=== PATIENT | female | born 1985 | race Caucasian/White ===

== ENCOUNTER 2016-09-04 05:35 | Inpatient (IN) | payer OTHER ==
[2016-09-04] MEDS ORDERED: Scopolamine 1.5 MG Transdermal Patch TRDERM PRN (06:00)
[2016-09-04] MEDS ORDERED: Acetaminophen 500 MG Tab PO ONE (06:00)
[2016-09-04] MEDS ORDERED: Dextrose 5%-Lactated Ringers 1,000 ML IV SCH (06:00)
[2016-09-04] MEDS ORDERED: Gabapentin 300 MG Cap PO ONE (06:00)
[2016-09-04] MEDS ORDERED: Celecoxib 200 MG Cap PO ONE (06:00)
[2016-09-04] MEDS ORDERED: Pantoprazole 40 MG Vial IVPUSH ONE (06:30)
[2016-09-04] MEDS ORDERED: fentaNYL 250 MCG/5 ML SDV ONE (07:07)
[2016-09-04] MEDS ORDERED: Midazolam 1 MG/ML 2 ML SDV ONE (07:07)
[2016-09-04] MEDS ORDERED: Dexamethasone 4 MG/ML SDV ONE (07:08)
[2016-09-04] MEDS ORDERED: Propofol 200 MG/20 ML SDV ONE (07:08)
[2016-09-04] MEDS ORDERED: Rocuronium 50 MG/5 ML Vial ONE (07:08)
[2016-09-04] MEDS ORDERED: Ondansetron 4 MG/2 ML SDV ONE (07:08)
[2016-09-04] MEDS ORDERED: Succinylcholine/Normal Saline 200 MG/10 ML Syringe ONE (07:08)
[2016-09-04] MEDS ORDERED: Neostigmine Methylsulfate 1 MG/ML 5 ML Syringe ONE (07:08)
[2016-09-04] MEDS ORDERED: cefOXitin 2 GM in Sodium Chloride 0.9% 100 ML IV ONE (07:45)
[2016-09-04] MEDS ORDERED: cefOXitin 2 GM in Sodium Chloride 0.9% 50 ML IV ONE (07:45)
[2016-09-04] MEDS ORDERED: Lactated Ringers 1,000 ML ONE (07:52)
[2016-09-04] MEDS ORDERED: Ropivacaine 60 ML, Dexamethasone 8 MG, EPINEPHrine 0.4 MG, Sodium Chloride 0.9% 17.6 ML NERVRT SCH ×4 (08:00)
[2016-09-04] MEDS ORDERED: Ketamine 500 MG/5 ML MDV IV SCH (08:00)
[2016-09-04] MEDS ORDERED: Lidocaine 2% 100 MG/5 ML Syringe IVPUSH SCH (08:00)
[2016-09-04] MEDS: cefOXitin 2 GM Vial ONE ×2 (08:26→09:10)
[2016-09-04] MEDS ORDERED: fentaNYL 100 MCG/2 ML SDV IVPUSH ONE (10:00)
[2016-09-04] MEDS: Lidocaine 0.4%/D5W 2 GM/500 ML BAG IV SCH (11:38)
[2016-09-04] MEDS ORDERED: Ondansetron 4 MG/2 ML SDV IVPUSH PRN (11:39)
[2016-09-04] MEDS ORDERED: SCOPOLAMINE PATCH CHECK TOP SCH (11:39)
[2016-09-04] MEDS ORDERED: Pantoprazole 40 MG Vial IVPUSH SCH ×2 (11:39→13:00)
[2016-09-04] MEDS ORDERED: hydrOXYzine HCl 50 MG/ML SDV IM PRN (11:39)
[2016-09-04] MEDS ORDERED: Labetalol 20 MG/4 ML Syringe IVPUSH PRN (11:39)
[2016-09-04] MEDS ORDERED: SCOPOLAMINE PATCH ASK TOP SCH (11:39)
[2016-09-04] MEDS ORDERED: diphenhydrAMINE 50 MG/ML SDV IV PRN (11:46)
[2016-09-04] MEDS: Dextrose 5%-Lactated Ringers 1,000 ML IV SCH (13:44)
[2016-09-04] MEDS: cefOXitin 2 GM in Sodium Chloride 0.9% 50 ML IV SCH ×2 (13:48→20:45)
[2016-09-04] MEDS: Acetaminophen 500 MG Tab PO SCH ×2 (14:43→20:45)
[2016-09-04] MEDS: Gabapentin 250 MG/5 ML Solution ML 470 ML Bottle PO SCH ×2 (14:44→20:45)
[2016-09-04] MEDS: MVI, Adult with Vitamin K 10 ML, Thiamine 200 MG, Chromium/Copper/Mang/Selen/Zn 1 ML in... IV SCH ×4 (16:59)
[2016-09-04] MEDS: Heparin Sodium 5,000 Units/ML Vial SUBCUT SCH (17:00)
[2016-09-04] MEDS ORDERED: Metoclopramide 10 MG/2 ML SDV IV PRN (17:00)
[2016-09-05] MEDS: Lidocaine 0.4%/D5W 2 GM/500 ML BAG IV SCH ×2 (00:37→10:15)
[2016-09-05] MEDS ORDERED: Iohexol 647 MG/ML 50 ML SDV PO SCH (00:45)
[2016-09-05] MEDS: cefOXitin 2 GM in Sodium Chloride 0.9% 50 ML IV SCH ×2 (02:42→07:52)
[2016-09-05] MEDS: Dextrose 5%-Lactated Ringers 1,000 ML IV SCH ×2 (02:44→05:30)
[2016-09-05] MEDS: Heparin Sodium 5,000 Units/ML Vial SUBCUT SCH ×2 (05:30→17:52)
[2016-09-05] MEDS ORDERED: Pantoprazole 40 MG Vial IVPUSH SCH (06:00)
--- NOTE | 2016-09-05 09:15 | PN ---
DATE OF SERVICE: 09/05/2016 The patient has been afebrile with stable vital signs. Pain control seems to be reasonable. She started to have some gas type discomfort. Oral intake was fairly good as well and x-ray looked good this morning. We will begin a step-2 diet without solids today. Lidocaine infusion will be ending late morning and we will see if she needs any additional pain control at that time. Otherwise, maximize activity and work with pulmonary toilet. Marie catheter will be coming out. Johnny Voss MD /[id number]
[2016-09-05] MEDS: Gabapentin 250 MG/5 ML Solution ML 470 ML Bottle PO SCH ×3 (09:37→19:59)
[2016-09-05] MEDS: Acetaminophen 500 MG Tab PO SCH (09:39)
[2016-09-05] MEDS: Celecoxib 200 MG Cap PO SCH (09:41)
--- NOTE | 2016-09-05 09:56 | CR ---
UGI wo KUB HISTORY: eval rny gbp FINDINGS: After administration of oral contrast, upright views were obtained. Post operative changes gastric bypass. Surgical drains in place. No evidence for leak. Contrast passes freely into proxima l small bowel loops. IMPRESSION: No evidence for leak or obstruction.
[2016-09-05] MEDS ORDERED: Dextrose 5%-Lactated Ringers 1,000 ML IV SCH (11:00)
[2016-09-05] MEDS: valACYclovir 1,000 MG Tab PO SCH (11:34)
[2016-09-05] MEDS: Citalopram 10 MG Tab PO SCH (11:34)
[2016-09-05] MEDS: Acetaminophen Soln 650 MG/20.3 ML UD Cup PO SCH ×2 (15:21→22:35)
[2016-09-05] MEDS: MVI, Adult with Vitamin K 10 ML, Thiamine 200 MG, Chromium/Copper/Mang/Selen/Zn 1 ML in... IV SCH ×4 (17:52)
[2016-09-06] MEDS: Acetaminophen Soln 650 MG/20.3 ML UD Cup PO SCH ×2 (06:19→14:27)
[2016-09-06] MEDS: Heparin Sodium 5,000 Units/ML Vial SUBCUT SCH (06:20)
[2016-09-06] MEDS: Gabapentin 250 MG/5 ML Solution ML 470 ML Bottle PO SCH ×2 (08:50→14:27)
[2016-09-06] MEDS: Citalopram 10 MG Tab PO SCH (08:51)
[2016-09-06] MEDS: Celecoxib 200 MG Cap PO SCH (08:51)
[2016-09-06] MEDS: valACYclovir 1,000 MG Tab PO SCH (08:52)
[2016-09-06] MEDS ORDERED: Cyanocobalamin (Vitamin B12) 1,000 MCG/ML SDV IM ONE (09:00)
[2016-09-06 11:07] VITALS: BP 121/60
[2016-09-06] MEDS ORDERED: Magnesium Hydroxide 400 MG/5 ML Susp 30 ML Cup PO ONE (14:57)
--- NOTE | 2016-09-07 15:46 | DISCH ---
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 DISCHARGE DIAGNOSES: Laparoscopic Rosario-en-Y gastric bypass surgery, liver biopsy, repair of diaphragmatic hernia, bilateral TAP blocks for morbid obesity, hepatomegaly, and diaphragmatic hernia on 09/04/2016. HISTORY: Nancy Dowell is a 30-year-old female with longstanding history of morbid obesity and increasingly comorbidities. After preoperative evaluation and discussion of possible risks and possible complications, she wished to proceed with surgical procedure. HOSPITAL COURSE: Nancy had her surgery on 09/04/2016. She had no operative complications. On postop day #1, her upper GI was normal. She continued with a step 1 gastric bypass diet and advanced to a step 2 with no cereal in the evening. Her pain was well managed. Her activity was good. Her vital signs were stable. She received adequate nutritional education. She received a B12 1000 mcg IM injection and she was ready to be discharged to home on postop day #2. PHYSICAL EXAMINATION: GENERAL: Nancy Dowell is a 30-year-old female. VITAL SIGNS: Height is 5 feet 2 inches. Weight is 269 pounds. BMI is 49. TPR is 98.1, 67, 18, blood pressure is 110/60. HEENT: Negative. NECK: Supple. HEART: Regular rate and rhythm. LUNGS: Clear. ABDOMEN: 4x4s over ANNEL drain sites. Incisions look good. Abdominal binder is on. EXTREMITIES: Without peripheral edema. DISPOSITION: Discharged to home. CONDITION: Stable and improving. FOLLOWUP: Followup appointment with Arleen Rainey PA-C, on 09/14/2016 at 1000 hours. PRESCRIPTIONS: Celebrex 200 mg oral daily #7. Milk of magnesia 30 mL were sent home with patient to take 1 daily p.r.n. constipation. Citalopram 10 mg daily. Clindamycin phosphate 1 applicator topical daily. B12 1000 mcg sublingual daily. Robinul Forte 2 mg every morning. She is to discontinue taking the iron supplement B complex and calcium citrate until 1st postop appointment. DIET: After discharge; step-2 gastric bypass diet with no cereal. Start protein shakes. Drink 8 to 10 glasses of water a day. ACTIVITY: After discharge; as tolerated. No lifting greater than 10 pounds. Driving after discharge; do not drive, may shower. Notify provider if any fever, increased pain, nausea, or vomiting. Wound incision care; keep site clean and dry. Wear abdominal binder for 2 weeks and then as tolerated. SPECIAL INSTRUCTION: Use incentive spirometer 10 times every hour while awake. Keep a record of food and liquid intake and bring to clinic appointments.
--- NOTE | 2016-09-11 14:32 | OR ---
DATE OF PROCEDURE: 09/04/2016 PREOPERATIVE DIAGNOSIS: Morbid obesity. POSTOPERATIVE DIAGNOSES: 1. Morbid obesity. 2. Marked hepatomegaly. 3. Paraesophageal diaphragmatic hernia. OPERATIVE PROCEDURES: 1. Laparoscopic Rosario-en-Y gastric bypass with long limb gastroenterostomy (06387). 2. Mark Anthony-Cut needle liver biopsy (98102). 3. Repair of paraesophageal diaphragmatic hernia (01625). ANESTHESIA: General plus bilateral subcostal transversus abdominis plane block. POPCORN MACHINE OPERATOR: Arleen Rainey PA-C. INDICATIONS FOR PROCEDURE: This is a 30-year-old female presenting with longstanding morbid obesity and increasingly significant comorbidities. After preoperative evaluation and discussion, she wished to proceed with a gastric bypass procedure. Potential risks of the procedure including bleeding, infection, leaks from various GI tract closures, problems with bowel obstruction over time as well as possibility of cardiopulmonary, septic, or hemorrhagic complications leading to were discussed, and the patient wishes to proceed. DETAILS OF PROCEDURE: The patient was taken to the operating room. After general endotracheal anesthesia was induced, she was placed in a lithotomy position. Using continuous ultrasound guidance, in sterile technique, the bilateral transversus abdominis plane block was placed in subcostal location where positioned 40 mL of the solution containing ropivacaine, dexamethasone, epinephrine, and sodium chloride were placed, and a satisfactory expansion of the transversus abdominis plane during the injection was confirmed. The abdomen was then prepped and draped. Marie catheter was inserted along the gastrointestinal balloon catheter, and the abdomen prepped and draped. At 15 cm inferior, 5 cm left of xiphoid process, transverse incision was made and peritoneal cavity entered under direct vision with an Optiview trocar, inflated to 15 mmHg with CO2. The laparoscope was reinserted. No underlying trocar insertion site injuries were seen. Following this, 5 additional trocars were placed in the upper and mid abdomen and general exploration undertaken. The patient was noted to have a significant hepatomegaly with liver grossly fatty infiltrated. Mark Anthony-Cut needle liver biopsies were obtained from the left lobe of the liver. Minimal bleeding from the biopsy sites was controlled with electrocautery. The omentum was then divided in the midline up to the level of the transverse colon. This allowed identification of the small bowel at the ligament of Treitz. The small bowel was then traced out 200 cm distal to that point, was divided transversely with a CAM stapler. Small bowel was then traced out an additional 200 cm where the [id number] enteroenterostomy was accomplished with internal firing of the Endo-CAM 60 mm stapler. The common opening was then closed transversely with the same stapler and angles anastomosed, and mesenteric defect approximated with some 0-Ethibond stitch along with fibrin sealant and Rosario limb was then from the mesentery for few centimeters, which allowed an antecolic position of the Rosario limb at the level of the gastroesophageal junction without tension. The liver was then retracted anteriorly. The patient noted to have a moderate-sized paraesophageal diaphragmatic hernia. This included prolapse of portion of the gastric fundus and some perigastric fat in the plane anterior to the esophagus, this was reduced, and peritoneum overlying the esophagogastric junction was incised and reflected downward. An anterior repair of the diaphragmatic hernia was accomplished with some 0-Ethibond seromuscular stitch with PTFE pledget reinforcement. At this point, the gastrointestinal balloon catheter was inflated to 15 mL in both the stomach and EG junction, gastric wall over the apex, balloon was marked with electrocautery, and balloon catheter was deflated and pulled up in the esophagus. The lesser omental tissue adjacent to gastric cardia was incised allowing dissection behind the stomach at that level. Pouch formation was initiated with a transverse firing of the CAM stapler at the level of the cauterized eugene in the gastric cardia and partially completed with 3 additional firings of CAM stapler up to and through the angle of His. Upon completion of the pouch, both staple lines were noted to be intact. The anvil of a 21-mm EEA stapler was then attached to [place] sump type tube. The latter was brought down the mouth and taken out through a small opening in the gastric pouch, allowing the anvil likewise to be pulled down to within the gastric pouch. The divided end of the Rosario limb was then opened. The main body of the EEA stapler passed several centimeters in the lumen of small bowel, brought up the anvil, united with it, thus creating the gastrojejunostomy. Upon removal of the stapler, double donuts of mucosa were noted within. The small bowel was closed off with a vascular staple line. Gastrojejunostomy reinforced with some 3-0 Vicryl seromuscular stitches along with fibrin sealant. The leak test was accomplished with injection of 120 mL of air in the gastric pouch while submerged with cefoxitin-containing saline solution. No leaks were identified. Two Galen-Daly drains were then placed adjacent to gastrojejunostomy and subcostal trocar sites. No further problems were noted. Trocars were removed and the peritoneal cavity deflated. The incision closed with 6-0 Vicryl skin stitch and drains were affixed with some 4-0 Vicryl stitch. The patient was taken to the recovery room in satisfactory condition. Physician exceptional children teacher assistant, Arleen Rainey, played an essential role in assisting in this case, helping to position the patient, retracting structures as needed, as well as suturing and cutting sutures as indicated. Her presence improved the patient's safety and decreased operative time. Johnny Voss MD /[id number] CC: Justina Vu MD, [facility]. [place]
== END 2016-09-06 16:55 | disposition home or self-care (01) | DRG 621 ==
LOC: JP.SDS 05:35 → JP.SDSSCHI 05:35 → EDSTATUS 09:15 → JP.2SS 11:15
PROVIDERS: ADMIT Surgery; ATTEND Surgery
PROC: 0BQS4ZZ (ICD-10-PCS; principal; 2016-09-04)
PROC: 0BQR4ZZ (ICD-10-PCS; principal; 2016-09-04)
PROC: 0D164ZA Bypass Stomach to Jejunum, Percutaneous Endoscopic Approach (ICD-10-PCS; principal; 2016-09-04)
PROC: 0FB24ZX Excision of Left Lobe Liver, Percutaneous Endoscopic Approach, Diagnostic (ICD-10-PCS; principal; 2016-09-04)
PROC: 3E0T3BZ Introduction of Anesthetic Agent into Peripheral Nerves and Plexi, Percutaneous Approach (ICD-10-PCS; 2016-09-04)
DX: E66.01 Morbid (severe) obesity due to excess calories (principal); Z68.42 Body mass index [BMI] 45.0-49.9, adult; F32.9 Major depressive disorder, single episode, unspecified; R61 Generalized hyperhidrosis; M72.2 Plantar fascial fibromatosis; Z87.42 Personal history of other diseases of the female genital tract; R16.0 Hepatomegaly, not elsewhere classified; K44.9 Diaphragmatic hernia without obstruction or gangrene
CPT/HCPCS: 36415; 74240; 74240-26; 80048; 82962; 83735; 84100; 85027; 86850; 86900; 86901; 88307; 94762; A9270-GY; C9113; J0171; J0694; J1100; J1644; J2001; J2250; J2405; J2704; J2795; J3010; J3410; J3411; J3420; J7030; J7042; J7050; J7120; Q9967